=== PATIENT | female | born 1940 ===

== ENCOUNTER 2017-10-06 09:24 | Emergency (ER) | payer MEDICARE ==
[2017-10-06 09:24] VITALS: BMI 25.9
[2017-10-06 09:31] VITALS: RESP 18; O2SAT 99
[2017-10-06 10:17] LABS: BASO # 0.1 K/uL (0.0-0.2); BASO % 1.2 % (0.0-2.0); EOS # 0.1 K/uL (0.0-0.7); EOS % 2.1 % (0.0-4.0); HEMOGLOBIN 10.6 g/dL (11.0-16.0); LYMPH # 1.7 K/uL (1.0-4.3); LYMPH % 26.7 % (20.0-40.0); MEAN CELL VOLUME 86.6 fL (81.0-99.0); MEAN CORPUSCULAR HEMOGLOBIN 30.1 pg (27.0-31.0); MEAN CORPUSCULAR HGB CONC 34.8 g/dL (33.0-37.0); MEAN PLATELET VOLUME 8.3 fL (7.2-11.7); MONO # 0.4 K/uL (0.0-0.8); MONO % 6.6 % (0.0-10.0); NEUT # 4.1 K/uL (1.8-7.0); NEUT % 63.4 % (50.0-75.0); RBC 3.51 Mil/uL (3.80-5.20); RED CELL DISTRIBUTION WIDTH 13.3 % (11.5-14.5); WHITE BLOOD COUNT 6.5 K/uL (4.8-10.8)
[2017-10-06 10:31] LABS: ALB/GLOB RATIO 1.1 (1.0-2.1); ALBUMIN 4.3 g/dL (3.5-5.0); AST/SGOT 25 U/L (14-36); BLOOD UREA NITROGEN 32 mg/dL (7-17); CALCIUM 8.8 mg/dl (8.6-10.4); GFR AFRICAN-AMERICAN 31; GFR NON-AFRICAN AMERICAN 26; LIPASE 54 U/L (23-300)
[2017-10-06 10:33] LABS: ALT/SGPT < 6 U/L (9-52)
[2017-10-06 10:58] LABS: SQUAMOUS EPITHIAL 1 /hpf (0-5); URINE BACTERIA MOD (<OCC); URINE BILIRUBIN NEGATIVE (NEGATIVE); URINE BLOOD NEGATIVE (NEGATIVE); URINE CLARITY Clear (Clear); URINE COLOR Straw (YELLOW); URINE GLUCOSE (UA) NORMAL (Normal); URINE LEUKOCYTE ESTERASE 2+ Leu/uL (Negative); URINE PROTEIN 1+ mg/dL (NEGATIVE); URINE UROBILINOGEN NORMAL mg/dL (0.2-1.0)
--- NOTE | 2017-10-06 11:09 | RAD ---
HISTORY: COMPARISON: No prior. TECHNIQUE: Chest PA and lateral FINDINGS: LINES AND TUBES: None. LUNG AND PLEURA: The lungs are well inflated and clear. There is mild pulmonary venous congestion. HEART AND MEDIASTINUM: The heart is not enlarged. Atherosclerotic aortic arch calcifications are present. The hilar and mediastinal contours are within normal limits. SKELETAL STRUCTURES: The bony structures are within normal limits for the patient's age. VISUALIZED UPPER ABDOMEN: Normal. OTHER FINDINGS: None. IMPRESSION: No active pulmonary disease.
--- NOTE | 2017-10-06 11:13 | C.PDOC ---
History Of Present Illness Pt c/o b/l mid/upper back pain. Time Seen by Provider: 10/06/17 09:55 Chief Complaint (Nursing): Back Pain History Per: Patient, Family Onset/Duration Of Symptoms: Days (about 1 year), Waxing/Waning Current Symptoms Are (Timing): Still Present Quality Of Discomfort: "Pain" Severity: Moderate Exacerbating Factor(s): Movement Additional History Per: Prior Records Past Medical History Reviewed: Historical Data, Nursing Documentation, Vital Signs Vital Signs: Last Vital Signs Temp 97.3 F L 10/06/17 09:27 Pulse 79 10/06/17 09:27 Resp 18 10/06/17 09:27 BP 175/68 H 10/06/17 09:40 Pulse Ox 99 10/06/17 09:27 - Medical History PMH: Diabetes, HTN, Hypercholesterolemia, Chronic Kidney Disease Surgical History: No Surg Hx - [facility] Procedures OTHER SKIN & SUBQ I D (12/22/13) TETANUS TOXOID ADMINIST (12/22/13) Family History: States: Unknown Family Hx - Social History Hx Alcohol Use: No Hx Substance Use: No Review Of Systems Except As Marked, All Systems Reviewed And Found Negative. Constitutional: Negative for: Fever, Weakness Cardiovascular: Negative for: Chest Pain Respiratory: Negative for: Shortness of Breath, Hemoptysis Gastrointestinal: Positive for: Abdominal Pain (upper). Negative for: Vomiting , Diarrhea Genitourinary: Negative for: Hematuria Musculoskeletal: Positive for: Back Pain. Negative for: Neck Pain, Leg Pain Skin: Negative for: Rash Neurological: Negative for: Weakness, Numbness Physical Exam - Physical Exam Appears: Non-toxic, No Acute Distress Skin: Normal Color, Warm, Dry, No Rash Head: Atraumatic, Normacephalic Eye(s): bilateral: Normal Inspection, PERRL, EOMI Neck: Normal ROM, Supple Chest: Symmetrical Cardiovascular: Rhythm Regular Respiratory: Normal Breath Sounds, No Accessory Muscle Use Gastrointestinal/Abdominal: Soft, Tenderness (mild upper), No Mass, No Distention, No Guarding, No Rebound Back: No CVA Tenderness, Paraspinal Tenderness (mid/upper) Extremity: Normal ROM, No Pedal Edema, No Calf Tenderness Neurological/Psych: Oriented x3, Normal Motor, Normal Sensation ED Course And Treatment - Laboratory Results Result Diagrams: 10/06/17 10:11 10/06/17 10:11 Lab Interpretation: No Changes Compared To Prior Results Interpretation Of Abnormal: UTI O2 Sat by Pulse Oximetry: 99 Pulse Ox Interpretation: Normal - Radiology CXR: Viewed By Me, Read By Radiologist CXR Interpretation: Yes: No Acute Disease, Heart Size (wnl), Mediastinum (wnl) Progress - Interventions Interventions:: Observation - Medications Administered Oral: Acetaminophen Intravenous: Other (PPI) - Data Reviewed Data Reviewed: Lab, Diagnostic imaging, Old records - Continuity of Care Discussed patient case with:: Patient, Family-HIPPA compliant, ED Nurse - Patient Plan Patient Plan: Discharge, F/U with PCP, Continue present meds Disposition Counseled Patient/Family Regarding: Studies Performed, Diagnosis, Need For Followup, Rx Given - Disposition Referrals: Prashant Pringle MD [Staff Provider] - Disposition: HOME/ ROUTINE Disposition Time: 11:17 Condition: IMPROVED Additional Instructions: Follow up with your doctor for further evaluation and treatment. Return to the ER if you develop shortness of breath, chest pain, vomiting, weakness, numbness , worsening of symptoms or if you have any other concerns. Prescriptions: Acetaminophen [Tylenol Extra Strength] 2 tab PO Q6 PRN #30 tablet PRN Reason: Pain, Moderate (4-7) Ciprofloxacin [Cipro] 1 tab PO BID #14 tab Pantoprazole Sodium [Protonix] 40 mg PO DAILY #14 ect Instructions: Urinary Tract Infection, Adult (DC), Upper Back Pain (DC) Forms: [employer] (Upper Sorbian) Print Language: SAMI - Clinical Impression Clinical Impression: UTI (urinary tract infection), Chronic back pain
[2017-10-06 11:31] VITALS: BP 154/62; PULSE 73; TEMP 98.1
== END 2017-10-06 11:36 | disposition home or self-care (01) ==
LOC: C.ER 09:24
DX: N39.0 Urinary tract infection, site not specified (principal); G89.29 Other chronic pain; M54.9 Dorsalgia, unspecified; E78.00 Pure hypercholesterolemia, unspecified; I12.9 Hypertensive chronic kidney disease with stage 1 through stage 4 chronic kidney disease, or unspecified chronic kidney disease; N18.9 Chronic kidney disease, unspecified; E11.9 Type 2 diabetes mellitus without complications
CPT/HCPCS: 71046; 80053; 81001; 83690; 84484; 85025; 87086; 96374; 99285; C9113

== ENCOUNTER 2018-05-24 10:28 | Emergency (ER) | payer MEDICARE ==
[2018-05-24 10:51] VITALS: BMI 25.1
[2018-05-24 10:55] VITALS: TEMP 98
--- NOTE | 2018-05-24 11:32 | C.PDOC ---
History Of Present Illness 77 y/o female, with history of diabetes and hypertension, comes in complaining of constant left leg pain for the past 4 days. Patient denies any trauma or fever. States she took 4 mg of ibuprofen this morning at 5am. Time Seen by Provider: 05/24/18 11:06 Chief Complaint (Nursing): Lower Extremity Problem/Injury History Per: Patient History/Exam Limitations: no limitations Onset/Duration Of Symptoms: Days Current Symptoms Are (Timing): Still Present Past Medical History Reviewed: Historical Data, Nursing Documentation, Vital Signs Vital Signs: Last Vital Signs Temp 98 F 05/24/18 10:51 Pulse 82 05/24/18 10:51 Resp 18 05/24/18 10:51 BP 189/88 H 05/24/18 10:51 Pulse Ox 100 05/24/18 10:51 - Medical History PMH: Diabetes, HTN, Hypercholesterolemia, Chronic Kidney Disease - [facility] Procedures OTHER SKIN & SUBQ I D (12/22/13) TETANUS TOXOID ADMINIST (12/22/13) Family History: States: No Known Family Hx - Social History Hx Alcohol Use: No Hx Substance Use: No - Immunization History Hx Tetanus Toxoid Vaccination: No Hx Influenza Vaccination: No Hx Pneumococcal Vaccination: No Review Of Systems Except As Marked, All Systems Reviewed And Found Negative. Constitutional: Negative for: Fever, Chills Cardiovascular: Negative for: Chest Pain Respiratory: Negative for: Shortness of Breath Gastrointestinal: Negative for: Abdominal Pain Musculoskeletal: Positive for: Leg Pain (Left lower leg). Negative for: Other (hip pain, buttock pain, or knee pain) Skin: Negative for: Rash Physical Exam - Physical Exam Appears: Non-toxic, No Acute Distress Skin: Warm, Dry Head: Atraumatic, Normacephalic Eye(s): bilateral: Normal Inspection Oral Mucosa: Moist Neck: Supple Chest: Symmetrical Cardiovascular: Rhythm Regular, No Murmur Respiratory: Normal Breath Sounds, No Rales, No Rhonchi, No Wheezing Extremity: Normal ROM, Tenderness (to left lower leg), Calf Tenderness (Right), Capillary Refill (less than 2 seconds), No Deformity, No Swelling (or redness), Other (Able to bear weight) Pulses: Left Dorsalis Pedis: Normal Neurological/Psych: Oriented x3, Normal Speech, Normal Motor ED Course And Treatment O2 Sat by Pulse Oximetry: 100 (RA) Pulse Ox Interpretation: Normal Medical Decision Making Medical Decision Making: Plan: --Venous Duplex Scan of lower extremities --Ibuprofen 600 mg PO --Tylenol PO Patient feels better after motrin and tylenol. Vascular studies were unremarkable. Patient will be discharged home and was instructed to follow up with PMD in 1-2 days for further evaluation. Disposition Counseled Patient/Family Regarding: Studies Performed, Diagnosis, Need For Followup, Rx Given - Disposition Disposition: HOME/ ROUTINE Disposition Time: 12:11 Condition: STABLE Prescriptions: Ibuprofen [Motrin] 600 mg PO TID #15 tab traMADol/Acetaminophen [Ultracet 37.5/325 mg] 1 tab PO HS PRN #5 tab PRN Reason: pain Instructions: Muscle and Bone Pain (DC) Forms: [employer] ([place] Citizen), Gen Discharge Inst [place] - POA Present On Arrival: None - Clinical Impression Clinical Impression: Muscle strain - Scribe Statement The provider has reviewed the documentation as recorded by the Maged Dobson Provider Attestation: All medical record entries made by the Maged were at my direction and personally dictated by me. I have reviewed the chart and agree that the record accurately reflects my personal performance of the history, physical exam, medical decision making, and the department course for this patient. I have also personally directed, reviewed, and agree with the discharge instructions and disposition.
[2018-05-24 12:22] VITALS: BP 168/89; PULSE 78; RESP 16
[2018-05-24 12:28] VITALS: O2SAT 100
--- NOTE | 2018-05-25 15:07 | VASCLAB ---
Date of service: 05/24/2018 PROCEDURE: Left Lower Extremity Venous Duplex Exam. HISTORY: pain and swelling upper leg and calf X 4 days PRIORS: None. TECHNIQUE: Left common femoral, femoral, popliteal and posterior tibial, peroneal and great saphenous veins were evaluated. Flow was assessed with color Doppler, compressibility, assessment of phasic flow and augmentation response. Report prepared by Mario Dave, RHINA, RVT FINDINGS: LEFT: 1. Common Femoral Vein: 1.1. Compressibility - Fully compressible: Thrombus - None : Flow - Phasic: Augmentation -Normal: Reflux - None. 2. Femoral Vein: 2.1. Compressibility - Fully compressible: Thrombus - None: Flow - Phasic: Augmentation -Normal: Reflux - None. 3. Popliteal Vein: 3.1. Compressibility - Fully compressible: Thrombus - None: Flow - Phasic: Augmentation -Normal: Reflux - None. 4. Posterior Tibial Vein: 4.1. Compressibility - Fully compressible: Thrombus - None: Flow - Phasic: Augmentation -Normal: Reflux - None. 5. Peroneal Vein: 5.1. Compressibility - Fully compressible: Thrombus - None: Flow - Phasic: Augmentation -Normal: Reflux - None. 6. Great Saphenous Vein: 6.1. Compressibility - Fully compressible: Thrombus - None: Flow - Phasic: Augmentation - Normal: Reflux - None. OTHER FINDINGS: IMPRESSION: No evidence of deep or superficial vein thrombosis of the left lower extremity with excellent venous flow. Normal valve function noted of the left side. Normal venous flow noted in the right common femoral vein.
== END 2018-05-24 12:21 | disposition home or self-care (01) ==
LOC: C.ER 10:28
DX: S86.912A Strain of unspecified muscle(s) and tendon(s) at lower leg level, left leg, initial encounter (principal); X58.XXXA Exposure to other specified factors, initial encounter